=== PATIENT | male | born 1990 | race African-American/Black ===

== ENCOUNTER 2020-03-13 09:13 | Emergency (ER) | payer MEDICAID ==
[~2020-03-13] VITALS: Ht 185.4 cm; Wt 63.5 kg
--- NOTE | 2020-03-13 09:13 | NUR ---
Patient BIB [place] [employer] for pre-booking medical screening exam. RN evaluating patient at bedside.
--- NOTE | 2020-03-13 09:16 | NUR ---
30 Y/O MALE BIB [place] [employer] FOR MEDICAL CLEARANCE FOR PREEBOOK. PT C/O RT ARM PAIN S/P FRACTURE DUE TO TC X 13 DAYS AGO.
[2020-03-13 09:18] VITALS: BP 133/81
--- NOTE | 2020-03-13 09:24 | NUR ---
Dr. Flor is evaluating the patient at bedside.
--- NOTE | 2020-03-13 09:42 | NUR ---
PT'S SPLINT WAS WET AND DAMAGED. REPLACED IT WITH A NEW SPLINT. SUGARTONG SPLINT TO THE RIGHT ARM.
--- NOTE | 2020-03-13 09:54 | NUR ---
+PULSES, +CMS S/P SUGARTONG SLINT PLACEMENT PLACED BY [facility] EMT
[2020-03-13 10:01] VITALS: BP 133/81
--- NOTE | 2020-03-13 10:01 | NUR ---
PATIENT BIB [place] [facility] OFFICER [facility] DEPT. PATIENT EXAMINED BY DR. JOHN. PATIENT MEDICALLY CLEARED AND RELEASED IN CUSTODY IN STABLE CONDITION. ORIGINAL PRE-BOOK FORM GIVEN TO OFFICER [place]. DISCHARGE INSTRUCTIONS GIVEN TO OFFICER.
== END 2020-03-13 10:01 ==
LOC: MED 09:13
DX: M25.531 Pain in right wrist (principal); Z02.89 Encounter for other administrative examinations; Z46.89 Encounter for fitting and adjustment of other specified devices
CPT/HCPCS: 99283